=== PATIENT | male | born 1985 | race Caucasian/White ===

== ENCOUNTER 2020-02-21 10:56 | Emergency (ER) | payer OTHER ==
[~2020-02-21] VITALS: Ht 170.2 cm; Wt 86.2 kg
[2020-02-21 11:37] LABS: ABSOLUTE BASOPHILS 0.1 thou/uL (0.0-0.2); ABSOLUTE EOSINOPHILS 0.2 thou/uL (0.0-0.7); ABSOLUTE MONOCYTES 0.9 thou/uL (0.0-1.2); ABSOLUTE NEUTROPHILS 8.9 thou/uL (1.6-8.1); BASOPHILS 0.5 %; EOSINOPHILS 1.4 %; HEMOGLOBIN 14.4 gm/dL (14.0-18.0); LYMPHOCYTES 9.4 %; MCH 28.9 pg (26.0-34.0); MCHC 33.6 g/dL (28.0-37.0); MCV 85.9 fL (80.0-100.0); MONOCYTES 7.7 %; MPV 8.1 fl. (7.2-11.1); NUCLEATED RBCS 0 /100WBC; PLATELET COUNT* 198 thou/uL (150-400); RDW-CV 12.5 % (10.5-14.5)
[2020-02-21 11:57] LABS: CALCIUM 10.4 mg/dL (8.5-10.1); CREATININE 0.9 mg/dL (0.6-1.3); POTASSIUM 4.2 mmol/L (3.5-5.1)
[2020-02-21 12:02] LABS: ALBUMIN 3.3 g/dL (3.4-5.0); TOTAL BILIRUBIN 0.6 mg/dL (<0.1-1.0); TOTAL PROTEIN 7.5 g/dL (6.4-8.2)
[2020-02-21] MEDS ORDERED: VENTOLIN HFA 1818 GM INH (12:54)
[2020-02-21] MEDS ORDERED: DOXYCYCLINE 10100 MG PO (12:54)
[2020-02-21 13:03] VITALS: BP 149/97
--- NOTE | 2020-02-21 16:47 | EKG ---
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: [facility] : 1985 Requested By: Denia Silver Order Number: [id number] MD: Chintan Young Measurements Intervals [place] Rate: 86 P: -14 TN: 175 QRS: 8 QRSD: 95 T: 23 QT: 357 QTc: 427 Interpretive Statements Sinus rhythm Anterior infarct, old No previous ECG available for comparison Electronically Signed On 02-21-2020 16:47:11 [employer] by Chintan Young [email or web address] <ELECTRONICALLY SIGNED> By: Chintan Young MD, [facility] 02/21/20 1647 1110 1110 Chintan Young MD, FACC /EPI
== END 2020-02-21 13:03 | disposition home or self-care (01) ==
LOC: M.ERS 10:56
PROVIDERS: Nurse Practitioner Family
DX: S20.212A Contusion of left front wall of thorax, initial encounter (principal); J18.8 Other pneumonia, unspecified organism; Z20.828 Contact with and (suspected) exposure to other viral communicable diseases; W50.0XXA Accidental hit or strike by another person, initial encounter; Y93.89 Activity, other specified; Y92.89 Other specified places as the place of occurrence of the external cause; Y99.8 Other external cause status